=== PATIENT | male | born 1975 | race Caucasian/White ===

== ENCOUNTER 2018-11-26 11:37 | Observation (INO) | payer OTHER ==
[2018-11-26 12:41] LABS: Appearance,Urine Clear (Clear); Bilirubin,Urine Negative (Negative); Blood,Urine Negative (Negative); Color,Urine Colorless; Glucose,Urine (UA) Negative (Negative); Ketones,Urine Negative (Negative); Leukocyte Esterase,Urine Negative (Negative); Nitrite,Urine Negative (Negative); PH, Urine 7.5 (5.0-8.0); Protein,Urine Negative (Negative); Specific Gravity,Urine 1.004 (1.001-1.035); Urobilinogen,Urine <2.0 mg/dL (<2.0)
[2018-11-26 12:49] LABS: ALT 21 U/L (21-72); AST 21 U/L (17-59); African American GFR (CKD) >90 (>60 ml/min/1.73 sqM); Albumin 3.9 g/dL (3.5-5.0); Alkaline Phosphatase 43 U/L (38-126); Anion Gap 6 mmol/L; Blood Urea Nitrogen 7 mg/dL (9-20); Calcium 9.5 mg/dL (8.4-10.2); Carbon Dioxide 30 mmol/L (22-30); Chloride 107 mmol/L (98-107); Glucose 93 mg/dL (74-99); Potassium 4.6 mmol/L (3.5-5.1); Sodium 143 mmol/L (137-145); Total Bilirubin 0.4 mg/dL (0.2-1.3); Total Protein 6.8 g/dL (6.3-8.2)
--- NOTE | 2018-11-26 12:49 | ED ---
General Adult HPI - General Chief complaint: Extremity Injury, Lower Stated complaint: Lower Extremity Pain Time Seen by Provider: 11/26/18 11:42 Source: patient, EMS Mode of arrival: EMS Limitations: no limitations - History of Present Illness Initial comments: The patient is a 43-year-old male who is a transfer from [place] for lower extremity edema. The patient does have a history of TIA, 2 months ago and alcohol abuse. Patient reports that he entered rehab 32 days ago and is currently residing at [place]. States that as of 5 days ago he began having bilateral lower extremity swelling. No history of previous in the past. Denies a history of congestive heart failure, kidney or liver failure. No history of lower extremity cellulitis. No chronic venous insufficiency. Denies a history of DVTs or PEs. No family history of blood clotting disorders. Denies any recent travel or prolonged immobility. No recent surgeries. States he's had progressive pain and swelling in his legs. Now extends up to his mid thigh. Reports that it is extremely painful. Extremity is warm and hot. He denies any fevers or chills. No chest pain or shortness of breath. Denies abdominal pain. No nausea or vomiting. Denies any new medication changes. States it has been difficult a really due to the pain is lower tremors. There are no other alleviating, precipitating or modifying factors - Related Data Home Medications Medication Instructions Recorded Confirmed Acetaminophen [Tylenol 8 Hour] 650 mg PO Q4H PRN 11/26/18 11/26/18 Chlorpheniramine Maleate 4 mg PO DAILY PRN 11/26/18 11/26/18 [Chlor-Trimeton] Divalproex Sodium [Depakote] 500 mg PO BID 11/26/18 11/26/18 Gabapentin 600 mg PO BID 11/26/18 11/26/18 Ibuprofen [Motrin] 600 mg PO Q6H PRN 11/26/18 11/26/18 Multivitamins, Thera [Multivitamin 1 tab PO DAILY 11/26/18 11/26/18 (formulary)] OLANZapine [ZyPREXA] 5 mg PO DAILY 11/26/18 11/26/18 Thiamine [Vitamin B-1] 100 mg PO DAILY 11/26/18 11/26/18 busPIRone HCL 15 mg PO TID 11/26/18 11/26/18 traZODone HCL [Desyrel] 50 - 150 mg PO HS 11/26/18 11/26/18 Previous Rx's Medication Instructions Recorded Furosemide [Lasix] 20 mg PO DAILY 14 Days #14 tab 11/30/18 Levofloxacin [Levaquin] 500 mg PO DAILY 3 Days #3 tab 11/30/18 Nicotine 14Mg/24Hr Patch [Habitrol] 1 patch TRANSDERM DAILY 30 Days 11/30/18 #30 patch Potassium Chloride ER [K-Dur 10] 10 meq PO DAILY 14 Days #14 tab 11/30/18 Allergies Allergy/AdvReac Type Severity Reaction Status Date / Time aspirin AdvReac Unknown Verified 11/26/18 11:42 Penicillins AdvReac Unknown Verified 11/26/18 11:42 Review of Systems ROS Statement: Those systems with pertinent positive or pertinent negative responses have been documented in the HPI. ROS Other: All systems not noted in ROS Statement are negative. Past Medical History Past Medical History: CVA/TIA, Hyperlipidemia, Hypertension, Myocardial Infarction ([place]) History of Any Multi-Drug Resistant Organisms: None Reported Past Surgical History: Orthopedic Surgery Past Psychological History: Anxiety, Bipolar, Depression Smoking Status: Current every day smoker Past Alcohol Use History: Abuse Past Drug Use History: None Reported - Past Family History Mother Family Medical History: COPD Father History Unknown: Yes Family Medical History: Unable to Obtain General Exam Limitations: no limitations General appearance: alert, in no apparent distress Head exam: Present: atraumatic, normocephalic, normal inspection Eye exam: Present: normal appearance, PERRL, EOMI. Absent: scleral icterus, co njunctival injection, periorbital swelling ENT exam: Present: normal exam, mucous membranes moist Neck exam: Present: normal inspection. Absent: tenderness, meningismus, lymphadenopathy Respiratory exam: Present: normal lung sounds bilaterally. Absent: respiratory distress, wheezes, rales, rhonchi, stridor Cardiovascular Exam: Present: regular rate, normal rhythm, normal heart sounds. Absent: systolic murmur, diastolic murmur, rubs, gallop, clicks GI/Abdominal exam: Present: soft, normal bowel sounds. Absent: distended, tenderness, guarding, rebound, rigid Extremities exam: Present: normal inspection, full ROM, normal capillary refill, pedal edema (3+ pitting edema. 2+ DP and PT pulses. Comartments are soft. No open wounds. Legs are warm with slight erythema. ). Absent: tenderness, joint swelling, calf tenderness Back exam: Present: normal inspection Neurological exam: Present: alert, oriented X3, CN II-XII intact Psychiatric exam: Present: normal affect, normal mood Skin exam: Present: warm, dry, intact, normal color. Absent: rash Course Vital Signs 11/26/18 11/26/18 11/26/18 11:38 11:43 12:00 Temperature 98.2 F Pulse Rate 71 Respiratory 16 Rate Blood Pressure 125/89 125/89 125/89 O2 Sat by Pulse 98 98 99 Oximetry 11/26/18 11/26/18 11/26/18 12:30 13:00 13:30 Temperature Pulse Rate Respiratory Rate Blood Pressure 116/80 127/80 125/78 O2 Sat by Pulse Oximetry 11/26/18 11/26/18 11/26/18 14:00 16:46 17:30 Temperature Pulse Rate 68 98 Respiratory 16 17 17 Rate Blood Pressure 135/84 130/83 130/83 O2 Sat by Pulse 99 99 Oximetry 11/26/18 11/26/18 11/26/18 18:00 18:30 19:00 Temperature Pulse Rate 82 85 Respiratory 17 18 16 Rate Blood Pressure 130/83 130/83 123/82 O2 Sat by Pulse 99 97 Oximetry 11/26/18 19:25 Temperature 98 F Pulse Rate 84 Respiratory 18 Rate Blood Pressure 125/74 O2 Sat by Pulse 97 Oximetry EKG Findings - EKG Comments: EKG Findings:: EKG demonstrates a sinus rhythm with a ventricular rate of 67. RI interval 118. QRS 84. QTC of 426. There are no acute ST segment elevations or depressions concerning for ischemic changes Medical Decision Making - Medical Decision Making Upon arrival the patient is placed in room 11. He was hooked up to continuous pulse ox and cardiac monitoring. Laboratory studies were conducted. The patient was sent for an ultrasound of his bilateral lower extremities. I also performed a chest x-ray. Upon return of the results I did discuss them with the patient. He does not demonstrate any signs of heart failure. No signs of liver kidney issues. Ultrasound is negative for blood clots. The patient does have significant pain and swelling did recommend initiating antibiotics for cellulitis even of the patient's laboratory markers are negative. Blood cultures were obtained. I did initiate him on clindamycin as he is ALLERGIC to penicillins. I did call discuss case with Dr. Hardin. Dr. hardin did recommend medical the patient's heart as well as a CT of the patient's abdomen and pelvis. Abdomen and pelvis CT is performed with contrast which demonstrates no acute findings. I will hold off on providing any Lasix to the patient. The patient did agree to treatment plan. Bridging orders were placed and the patient was transported to floor in stable condition - Lab Data Result diagrams: 11/30/18 06:45 11/30/18 06:45 Lab Results 11/26/18 11/26/18 11/26/18 Range/Units 12:26 12:26 12:26 WBC 6.7 (3.8-10.6) k/uL RBC 3.87 L (4.30-5.90) m/uL Hgb 12.2 L (13.0-17.5) gm/dL Hct 37.3 L (39.0-53.0) % MCV 96.3 (80.0-100.0) fL MCH 31.6 (25.0-35.0) pg MCHC 32.8 (31.0-37.0) g/dL RDW 14.6 (11.5-15.5) % Plt Count 354 (150-450) k/uL Neutrophils % 52 % Lymphocytes % 32 % Monocytes % 9 % Eosinophils % 3 % Basophils % 1 % Neutrophils # 3.5 (1.3-7.7) k/uL Lymphocytes # 2.1 (1.0-4.8) k/uL Monocytes # 0.6 (0-1.0) k/uL Eosinophils # 0.2 (0-0.7) k/uL Basophils # 0.1 (0-0.2) k/uL ESR 8 (0-15) mm/hr PT 10.1 (9.0-12.0) sec INR 0.9 (<1.2) APTT 27.2 (22.0-30.0) sec D-Dimer 0.45 (<0.60) mg/L FEU Sodium 143 (137-145) mmol/L Potassium 4.6 (3.5-5.1) mmol/L Chloride 107 (98-107) mmol/L Carbon Dioxide 30 (22-30) mmol/L Anion Gap 6 mmol/L BUN 7 L (9-20) mg/dL Creatinine 0.64 L (0.66-1.25) mg/dL Est GFR (CKD-EPI)AfAm >90 (>60 ml/min/1.73 sqM) Est GFR (CKD-EPI)NonAf >90 (>60 ml/min/1.73 sqM) Glucose 93 (74-99) mg/dL POC Glucose (mg/dL) (75-99) mg/dL POC Glu Industrial Automation Engineer ID Calcium 9.5 (8.4-10.2) mg/dL Magnesium 2.0 (1.6-2.3) mg/dL Total Bilirubin 0.4 (0.2-1.3) mg/dL AST 21 (17-59) U/L ALT 21 (21-72) U/L Alkaline Phosphatase 43 (38-126) U/L Troponin I (0.000-0.034) ng/mL C-Reactive Protein <5.0 (<10.0) mg/L NT-Pro-B Natriuret Pep pg/mL Total Protein 6.8 (6.3-8.2) g/dL Albumin 3.9 (3.5-5.0) g/dL TSH 1.990 (0.465-4.680) mIU/L Urine Color Urine Appearance (Clear) Urine pH (5.0-8.0) Ur Specific [place] (1.001-1.035) Urine Protein (Negative) Urine Glucose (UA) (Negative) Urine Ketones (Negative) Urine Blood (Negative) Urine Nitrite (Negative) Urine Bilirubin (Negative) Urine Urobilinogen (<2.0) mg/dL Ur Leukocyte Esterase (Negative) Valproic Acid ug/mL 11/26/18 11/26/18 11/26/18 Range/Units 12:26 12:26 12:26 WBC (3.8-10.6) k/uL RBC (4.30-5.90) m/uL Hgb (13.0-17.5) gm/dL Hct (39.0-53.0) % MCV (80.0-100.0) fL MCH (25.0-35.0) pg MCHC (31.0-37.0) g/dL RDW (11.5-15.5) % Plt Count (150-450) k/uL Neutrophils % % Lymphocytes % % Monocytes % % Eosinophils % % Basophils % % Neutrophils # (1.3-7.7) k/uL Lymphocytes # (1.0-4.8) k/uL Monocytes # (0-1.0) k/uL Eosinophils # (0-0.7) k/uL Basophils # (0-0.2) k/uL ESR (0-15) mm/hr PT (9.0-12.0) sec INR (<1.2) APTT (22.0-30.0) sec D-Dimer (<0.60) mg/L FEU Sodium (137-145) mmol/L Potassium (3.5-5.1) mmol/L Chloride (98-107) mmol/L Carbon Dioxide (22-30) mmol/L Anion Gap mmol/L BUN (9-20) mg/dL Creatinine (0.66-1.25) mg/dL Est GFR (CKD-EPI)AfAm (>60 ml/min/1.73 sqM) Est GFR (CKD-EPI)NonAf (>60 ml/min/1.73 sqM) Glucose (74-99) mg/dL POC Glucose (mg/dL) (75-99) mg/dL POC Glu Industrial Automation Engineer ID Calcium (8.4-10.2) mg/dL Magnesium (1.6-2.3) mg/dL Total Bilirubin (0.2-1.3) mg/dL AST (17-59) U/L ALT (21-72) U/L Alkaline Phosphatase (38-126) U/L Troponin I <0.012 (0.000-0.034) ng/mL C-Reactive Protein (<10.0) mg/L NT-Pro-B Natriuret Pep 97 pg/mL Total Protein (6.3-8.2) g/dL Albumin (3.5-5.0) g/dL TSH (0.465-4.680) mIU/L Urine Color Colorless Urine Appearance Clear (Clear) Urine pH 7.5 (5.0-8.0) Ur Specific [place] 1.004 (1.001-1.035) Urine Protein Negative (Negative) Urine Glucose (UA) Negative (Negative) Urine Ketones Negative (Negative) Urine Blood Negative (Negative) Urine Nitrite Negative (Negative) Urine Bilirubin Negative (Negative) Urine Urobilinogen <2.0 (<2.0) mg/dL Ur Leukocyte Esterase Negative (Negative) Valproic Acid ug/mL 11/26/18 11/26/18 11/27/18 Range/Units 12:28 19:33 00:51 WBC (3.8-10.6) k/uL RBC (4.30-5.90) m/uL Hgb (13.0-17.5) gm/dL Hct (39.0-53.0) % MCV (80.0-100.0) fL MCH (25.0-35.0) pg MCHC (31.0-37.0) g/dL RDW (11.5-15.5) % Plt Count (150-450) k/uL Neutrophils % % Lymphocytes % % Monocytes % % Eosinophils % % Basophils % % Neutrophils # (1.3-7.7) k/uL Lymphocytes # (1.0-4.8) k/uL Monocytes # (0-1.0) k/uL Eosinophils # (0-0.7) k/uL Basophils # (0-0.2) k/uL ESR (0-15) mm/hr PT (9.0-12.0) sec INR (<1.2) APTT (22.0-30.0) sec D-Dimer (<0.60) mg/L FEU Sodium (137-145) mmol/L Potassium (3.5-5.1) mmol/L Chloride (98-107) mmol/L Carbon Dioxide (22-30) mmol/L Anion Gap mmol/L BUN (9-20) mg/dL Creatinine (0.66-1.25) mg/dL Est GFR (CKD-EPI)AfAm (>60 ml/min/1.73 sqM) Est GFR (CKD-EPI)NonAf (>60 ml/min/1.73 sqM) Glucose (74-99) mg/dL POC Glucose (mg/dL) (75-99) mg/dL POC Glu Industrial Automation Engineer ID Calcium (8.4-10.2) mg/dL Magnesium (1.6-2.3) mg/dL Total Bilirubin (0.2-1.3) mg/dL AST (17-59) U/L ALT (21-72) U/L Alkaline Phosphatase (38-126) U/L Troponin I <0.012 0.013 (0.000-0.034) ng/mL C-Reactive Protein (<10.0) mg/L NT-Pro-B Natriuret Pep pg/mL Total Protein (6.3-8.2) g/dL Albumin (3.5-5.0) g/dL TSH (0.465-4.680) mIU/L Urine Color Urine Appearance (Clear) Urine pH (5.0-8.0) Ur Specific [place] (1.001-1.035) Urine Protein (Negative) Urine Glucose (UA) (Negative) Urine Ketones (Negative) Urine Blood (Negative) Urine Nitrite (Negative) Urine Bilirubin (Negative) Urine Urobilinogen (<2.0) mg/dL Ur Leukocyte Esterase (Negative) Valproic Acid 59.9 ug/mL 11/27/18 11/27/18 11/27/18 Range/Units 16:57 16:57 21:14 WBC 6.5 (3.8-10.6) k/uL RBC 4.04 L (4.30-5.90) m/uL Hgb 13.1 (13.0-17.5) gm/dL Hct 38.8 L (39.0-53.0) % MCV 96.1 (80.0-100.0) fL MCH 32.5 (25.0-35.0) pg MCHC 33.8 (31.0-37.0) g/dL RDW 14.7 (11.5-15.5) % Plt Count 387 (150-450) k/uL Neutrophils % 40 % Lymphocytes % 41 % Monocytes % 11 % Eosinophils % 3 % Basophils % 2 % Neutrophils # 2.6 (1.3-7.7) k/uL Lymphocytes # 2.7 (1.0-4.8) k/uL Monocytes # 0.7 (0-1.0) k/uL Eosinophils # 0.2 (0-0.7) k/uL Basophils # 0.1 (0-0.2) k/uL ESR (0-15) mm/hr PT (9.0-12.0) sec INR (<1.2) APTT (22.0-30.0) sec D-Dimer (<0.60) mg/L FEU Sodium 139 (137-145) mmol/L Potassium 4.6 (3.5-5.1) mmol/L Chloride 103 (98-107) mmol/L Carbon Dioxide 28 (22-30) mmol/L Anion Gap 8 mmol/L BUN 11 (9-20) mg/dL Creatinine 0.76 (0.66-1.25) mg/dL Est GFR (CKD-EPI)AfAm >90 (>60 ml/min/1.73 sqM) Est GFR (CKD-EPI)NonAf >90 (>60 ml/min/1.73 sqM) Glucose 93 (74-99) mg/dL POC Glucose (mg/dL) 96 (75-99) mg/dL POC Glu Industrial Automation Engineer ID Armando Trevino Calcium 9.8 (8.4-10.2) mg/dL Magnesium (1.6-2.3) mg/dL Total Bilirubin (0.2-1.3) mg/dL AST (17-59) U/L ALT (21-72) U/L Alkaline Phosphatase (38-126) U/L Troponin I (0.000-0.034) ng/mL C-Reactive Protein (<10.0) mg/L NT-Pro-B Natriuret Pep pg/mL Total Protein (6.3-8.2) g/dL Albumin (3.5-5.0) g/dL TSH (0.465-4.680) mIU/L Urine Color Urine Appearance (Clear) Urine pH (5.0-8.0) Ur Specific [place] (1.001-1.035) Urine Protein (Negative) Urine Glucose (UA) (Negative) Urine Ketones (Negative) Urine Blood (Negative) Urine Nitrite (Negative) Urine Bilirubin (Negative) Urine Urobilinogen (<2.0) mg/dL Ur Leukocyte Esterase (Negative) Valproic Acid ug/mL 11/28/18 11/28/18 11/29/18 Range/Units 07:25 07:25 07:33 WBC 6.3 5.8 (3.8-10.6) k/uL RBC 4.12 L 4.33 (4.30-5.90) m/uL Hgb 13.4 13.5 (13.0-17.5) gm/dL Hct 39.6 41.1 (39.0-53.0) % MCV 96.1 94.9 (80.0-100.0) fL MCH 32.4 31.2 (25.0-35.0) pg MCHC 33.7 32.8 (31.0-37.0) g/dL RDW 14.9 14.8 (11.5-15.5) % Plt Count 362 349 (150-450) k/uL Neutrophils % 52 50 % Lymphocytes % 33 34 % Monocytes % 7 9 % Eosinophils % 3 4 % Basophils % 1 1 % Neutrophils # 3.3 2.9 (1.3-7.7) k/uL Lymphocytes # 2.1 2.0 (1.0-4.8) k/uL Monocytes # 0.5 0.5 (0-1.0) k/uL Eosinophils # 0.2 0.2 (0-0.7) k/uL Basophils # 0.1 0.1 (0-0.2) k/uL ESR (0-15) mm/hr PT (9.0-12.0) sec INR (<1.2) APTT (22.0-30.0) sec D-Dimer (<0.60) mg/L FEU Sodium 139 (137-145) mmol/L Potassium 4.5 (3.5-5.1) mmol/L Chloride 99 (98-107) mmol/L Carbon Dioxide 27 (22-30) mmol/L Anion Gap 13 mmol/L BUN 16 (9-20) mg/dL Creatinine 0.77 (0.66-1.25) mg/dL Est GFR (CKD-EPI)AfAm >90 (>60 ml/min/1.73 sqM) Est GFR (CKD-EPI)NonAf >90 (>60 ml/min/1.73 sqM) Glucose 131 H (74-99) mg/dL POC Glucose (mg/dL) (75-99) mg/dL POC Glu Industrial Automation Engineer ID Calcium 9.6 (8.4-10.2) mg/dL Magnesium (1.6-2.3) mg/dL Total Bilirubin (0.2-1.3) mg/dL AST (17-59) U/L ALT (21-72) U/L Alkaline Phosphatase (38-126) U/L Troponin I (0.000-0.034) ng/mL C-Reactive Protein (<10.0) mg/L NT-Pro-B Natriuret Pep pg/mL Total Protein (6.3-8.2) g/dL Albumin (3.5-5.0) g/dL TSH (0.465-4.680) mIU/L Urine Color Urine Appearance (Clear) Urine pH (5.0-8.0) Ur Specific [place] (1.001-1.035) Urine Protein (Negative) Urine Glucose (UA) (Negative) Urine Ketones (Negative) Urine Blood (Negative) Urine Nitrite (Negative) Urine Bilirubin (Negative) Urine Urobilinogen (<2.0) mg/dL Ur Leukocyte Esterase (Negative) Valproic Acid ug/mL 11/29/18 Range/Units 07:33 WBC (3.8-10.6) k/uL RBC (4.30-5.90) m/uL Hgb (13.0-17.5) gm/dL Hct (39.0-53.0) % MCV (80.0-100.0) fL MCH (25.0-35.0) pg MCHC (31.0-37.0) g/dL RDW (11.5-15.5) % Plt Count (150-450) k/uL Neutrophils % % Lymphocytes % % Monocytes % % Eosinophils % % Basophils % % Neutrophils # (1.3-7.7) k/uL Lymphocytes # (1.0-4.8) k/uL Monocytes # (0-1.0) k/uL Eosinophils # (0-0.7) k/uL Basophils # (0-0.2) k/uL ESR (0-15) mm/hr PT (9.0-12.0) sec INR (<1.2) APTT (22.0-30.0) sec D-Dimer (<0.60) mg/L FEU Sodium 137 (137-145) mmol/L Potassium 4.0 (3.5-5.1) mmol/L Chloride 98 (98-107) mmol/L Carbon Dioxide 29 (22-30) mmol/L Anion Gap 10 mmol/L BUN 20 (9-20) mg/dL Creatinine 0.84 (0.66-1.25) mg/dL Est GFR (CKD-EPI)AfAm >90 (>60 ml/min/1.73 sqM) Est GFR (CKD-EPI)NonAf >90 (>60 ml/min/1.73 sqM) Glucose 126 H (74-99) mg/dL POC Glucose (mg/dL) (75-99) mg/dL POC Glu Industrial Automation Engineer ID Calcium 9.5 (8.4-10.2) mg/dL Magnesium (1.6-2.3) mg/dL Total Bilirubin (0.2-1.3) mg/dL AST (17-59) U/L ALT (21-72) U/L Alkaline Phosphatase (38-126) U/L Troponin I (0.000-0.034) ng/mL C-Reactive Protein (<10.0) mg/L NT-Pro-B Natriuret Pep pg/mL Total Protein (6.3-8.2) g/dL Albumin (3.5-5.0) g/dL TSH (0.465-4.680) mIU/L Urine Color Urine Appearance (Clear) Urine pH (5.0-8.0) Ur Specific [place] (1.001-1.035) Urine Protein (Negative) Urine Glucose (UA) (Negative) Urine Ketones (Negative) Urine Blood (Negative) Urine Nitrite (Negative) Urine Bilirubin (Negative) Urine Urobilinogen (<2.0) mg/dL Ur Leukocyte Esterase (Negative) Valproic Acid ug/mL Disposition Clinical Impression: Lower extremity edema Disposition: ADMITTED IP TO THIS [facility] Condition: Stable Is patient prescribed a controlled substance at d/c from ED?: No Decision to Admit Reason: Admit from EC Decision Date: 11/26/18 Decision Time: 15:46
--- NOTE | 2018-11-26 12:52 | XR ---
EXAMINATION TYPE: XR chest 2V DATE OF EXAM: 11/26/2018 COMPARISON: NONE TECHNIQUE: PA and lateral views submitted. HISTORY: Difficulty breathing FINDINGS: The lungs are clear and there is no pneumothorax, pleural effusion, or focal pneumonia. Hyperinflat ion noted. Biapical pleural thickening. Degenerative change of the spine. No overt failure. IMPRESSION: 1. No acute process. Correlate for COPD.
[2018-11-26 12:56] LABS: Basophils # (A) 0.1 k/uL (0-0.2); Basophils % (A) 1 %; Eosinophils # (A) 0.2 k/uL (0-0.7); Eosinophils % (A) 3 %; HCT 37.3 % (39.0-53.0); HGB 12.2 gm/dL (13.0-17.5); Lymphocytes # (A) 2.1 k/uL (1.0-4.8); Lymphocytes % (A) 32 %; MCH 31.6 pg (25.0-35.0); MCHC 32.8 g/dL (31.0-37.0); MCV 96.3 fL (80.0-100.0); Mean Platelet Volume 6.6; Monocytes # (A) 0.6 k/uL (0-1.0); Monocytes % (A) 9 %; Neutrophils # (A) 3.5 k/uL (1.3-7.7); Neutrophils % (A) 52 %; Platelet Count 354 k/uL (150-450); RBC 3.87 m/uL (4.30-5.90); RDW 14.6 % (11.5-15.5); WBC 6.7 k/uL (3.8-10.6)
[2018-11-26 13:00] LABS: D-Dimer 0.45 mg/L FEU (<0.60); INR 0.9 (<1.2); Partial Thromboplastin Time 27.2 sec (22.0-30.0); Prothrombin Time 10.1 sec (9.0-12.0)
[2018-11-26 13:04] LABS: C Reactive Protein <5.0 mg/L (<10.0)
--- NOTE | 2018-11-26 13:47 | US ---
EXAMINATION TYPE: US venous doppler duplex LE DATE OF EXAM: 11/26/2018 1:33 PM COMPARISON: NONE CLINICAL HISTORY: Pain. Bilateral leg pain and swelling x 5 to 6 days SIDE PERFORMED: Bilateral TECHNIQUE: The lower extremity deep venous system is examined utilizing real time linear array sonog emanuel with graded compression, doppler sonography and color-flow sonography. VESSELS IMAGED: External Iliac Vein (EIV) Common Femoral Vein Deep Femoral Vein Greater Saphenous Vein * Femoral Vein Popliteal Vein Small Saphenous Vein * Proximal Calf Veins (* superficial vessels) Grayscale, color doppler, spectral doppler imaging performed of the deep veins of the lower extremiti es. There is normal flow, compressibility, vascular waveforms. Right Leg: Appears negative for DVT Left Leg: Appears negative for DVT IMPRESSION: No sonographic evidence of deep venous thrombosis within either bilateral lower extremit y.
[2018-11-26 13:53] LABS: Erythrocyte Sedimentation Rate 8 mm/hr (0-15)
[2018-11-26] MEDS ORDERED: CLINDAMYCIN 600 MG in DEXTROSE 5% IN WATER 50 ML IVPB STA ×2 (14:21)
--- NOTE | 2018-11-26 15:45 | CT ---
EXAMINATION TYPE: CT abdomen pelvis w con DATE OF EXAM: 11/26/2018 COMPARISON: None HISTORY: Bilateral leg swelling CT DLP: 767 mGycm CONTRAST: CT scan of the abdomen and pelvis is performed without Oral Contrast and with IV Contrast, patient in jected with 100 mL of Isovue 300. FINDINGS: LUNG BASES-: No visible nodule. No infiltrate. LIVER/GB: No calcified gallstones. No space occupying hepatic lesion. Biliary tree is of normal ca liber. PANCREAS: No inflammation. No distinct mass. SPLEEN: No splenic enlargement. No lesion seen. ADRENALS: No nodule. No thickening. KIDNEYS/BLADDER: No hydronephrosis. No nephrolithiasis. No distinct renal mass. Urinary bladder g rossly unremarkable. BOWEL: Normal appendix. Normal bowel caliber. No inflammation. GENITAL ORGANS: No gross abnormality. LYMPH NODES: No greater than 1cm abdominal or pelvic lymph nodes are appreciated. AORTA: No significant abnormality. OSSEOUS STRUCTURES: No significant abnormality is seen. OTHER: No significant additional abnormality is seen. IMPRESSION: 1. No distinct abnormality to account for the patient's symptoms.
[2018-11-26] MEDS ORDERED: NALOXONE 0.4 MG/ML 1 ML VIAL IV PRN (15:47)
[2018-11-26] MEDS ORDERED: IBUPROFEN 600 MG TAB PO PRN (15:52)
[2018-11-26] MEDS ORDERED: ACETAMINOPHEN TAB 325 MG TAB PO PRN (15:52)
[2018-11-26] MEDS: busPIRone HCl 5 MG TAB PO SCH ×2 (19:01→22:36)
[2018-11-26] MEDS ORDERED: ALPRAZolam 0.25 MG TAB PO PRN (22:00)
[2018-11-26] MEDS ORDERED: TEMAZEPAM 15 MG CAP PO PRN (22:00)
[2018-11-26] MEDS ORDERED: HYDROcodone/APAP 5-325MG 1 EACH TAB PO PRN (22:00)
[2018-11-26] MEDS ORDERED: diphenhydrAMINE 25 MG CAP PO PRN (22:01)
[2018-11-26] MEDS: HEPARIN SODIUM,PORCINE 5,000 UNIT/ML 1 ML VIAL SQ SCH (22:36)
[2018-11-26] MEDS: traZODone HCL 50 MG TAB PO SCH ×2 (22:36→22:40)
[2018-11-27] MEDS ORDERED: CLINDAMYCIN 600 MG in DEXTROSE 5% IN WATER 50 ML IVPB SCH ×2
--- NOTE | 2018-11-27 01:11 | HP ---
HISTORY AND PHYSICAL DATE OF SERVICE: 11/26/2018 CHIEF COMPLAINT: Bilateral leg swelling. HISTORY OF PRESENT ILLNESS: This 43-year-old gentleman with past medical history of CVA, history of myocardial infarction, hypertension and hyperlipidemia, anxiety, bipolar, depression being followed by a primary physician elsewhere, was in [employer] for alcohol issues. The patient is noted to have bilateral leg swelling and some erythema and the patient was taken to [facility] and admitted to the hospital for further evaluation and treatment. The previous records are not available at this time. There is no history of fever, rigors or chills. No history of headache, loss of consciousness or seizures at this time. Initial labs indicated WBC 6.2, hemoglobin 12.2, creatinine 0.64. Troponins are negative. BNP is only 97. PAST MEDICAL HISTORY: History of hypertension, hyperlipidemia, history of CVA, TIA, history of myocardial infarction, anxiety, bipolar depression, nicotine dependence, alcohol abuse. MEDICATIONS ARE: 1. Trazodone 50-150 mg p.o. q.h.s. 2. Buspirone 15 mg p.o. t.i.d. 3. Vitamin B1 100 mg. 4. Zyprexa 5 mg. 5. Multivitamins one p.o. daily. 6. Motrin 600 mg q.6h p.r.n. 7. Gabapentin 600 mg p.o. b.i.d. 8. Depakote 500 mg p.o. b.i.d. 9. Chlorpheniramine maleate that is Chlor-Trimeton 4 mg daily p.r.n. 10.Tylenol 650 mg q.4 hours. ALLERGIES: ASPIRIN and PENICILLIN. FAMILY HISTORY: No history of heart disease or strokes in the family. SOCIAL HISTORY: Mentioned earlier. Smoking and alcohol abuse. REVIEW OF SYSTEMS: ENT: No diminished hearing. No diminished vision. CARDIOVASCULAR as mentioned earlier. RESPIRATORY: As mentioned earlier. GI no nausea or vomiting. no dysuria. NERVOUS SYSTEM: No numbness, weakness, otherwise mentioned earlier. ALLERGY/IMMUNOLOGY: No asthma or hayfever. MUSCULOSKELETAL: As mentioned earlier. HEMATOLOGY/ONCOLOGY: No history no anemia. ENDOCRINE: No history of diabetes or hypothyroid. CONSTITUTIONAL: As mentioned earlier. PSYCHIATRY: As mentioned. PHYSICAL EXAMINATION: GENERAL: Alert and oriented x3. VITAL SIGNS: The pulse is 84. Blood pressure 120/70, respiration 18, temperature 98 degrees, pulse ox 97% on room air. HEENT: Conjunctivae normal. Oral mucosa moist. NECK is no jugular venous distention. No carotid bruit. No lymph node enlargement. CARDIOVASCULAR SYSTEM: S1, S2 muffled. No S3, no S4. RESPIRATIONS: Breath sounds diminished in the bases. No rhonchi. No crackles. ABDOMEN: Soft, nontender. No mass palpable. LEGS: Bilateral leg edema. NERVOUS SYSTEM: Higher functions as mentioned earlier. Moves all 4 limbs. No focal motor or sensory deficits. Lymphatics: No lymph nodes palpable in the neck, axillae or groin. SKIN: No ulcer, rash or bleeding. JOINTS: No active deforming arthropathy. LABORATORY DATA: WBC 6.7, hemoglobin 12.2, creatinine 6.6. Other labs are noted. ASSESSMENT: 1. Bilateral leg edema for evaluation with possible congestive heart failure, acute exacerbation. 2. History of cerebrovascular accident. 3. History of myocardial infarction. 4. History of hypertension. 5. History of hyperlipidemia. 6. History of anxiety, bipolar depression. 7. History of nicotine dependence. 8. History of EtOH. 9. History of degenerative joint disease. 10.FULL CODE. RECOMMENDATIONS AND DISCUSSION: This 43-year-old gentleman who presented with multiple medical issues, at this time, I recommend to continue current medications, management and the symptomatic treatment. Previous chart records are not available. However, I would recommend intravenous diuretics a 2D echo with Doppler. Obtain old records from the previous hospice. Otherwise, cardiology consultation. See orders for details. Guarded prognosis. Further recommendations to follow. MMODL / IJN: [id number] /
[2018-11-27] MEDS: LEVOFLOXACIN 500MG-D5W PMX 500 MG in DEXTROSE/WATER 1 100ML.BAG IVPB SCH ×2 (02:05→22:21)
[2018-11-27] MEDS: GABAPENTIN 300 MG CAP PO SCH ×2 (07:46→22:20)
[2018-11-27] MEDS: THIAMINE 100 MG TAB PO SCH (07:46)
[2018-11-27] MEDS: MULTIVITAMINS, THERA 1 EACH TAB PO SCH (07:46)
[2018-11-27] MEDS: NICOTINE 14MG/24HR PATCH TRANSDERM SCH (07:46)
[2018-11-27] MEDS: PANTOPRAZOLE 40 MG TABLET PO SCH (07:46)
[2018-11-27] MEDS: busPIRone HCl 5 MG TAB PO SCH ×3 (07:47→22:21)
[2018-11-27] MEDS: HEPARIN SODIUM,PORCINE 5,000 UNIT/ML 1 ML VIAL SQ SCH ×2 (07:47→22:20)
[2018-11-27] MEDS: FUROSEMIDE 10 MG/ML 4 ML VIAL IV SCH ×2 (07:47→22:21)
[2018-11-27] MEDS: OLANZapine 5 MG TAB PO SCH (07:47)
[2018-11-27] MEDS: IPRATROPIUM 0.5 MG/2.5 ML NEBU INHALATION SCH ×2 (08:14→11:20)
[2018-11-27] MEDS ORDERED: DIVALPROEX 500 MG TABLET.DR PO SCH (09:00)
--- NOTE | 2018-11-27 11:32 | ECHOF ---
Referral Reason:lower extremity edema MEASUREMENTS -------- HEIGHT: 182.9 cm WEIGHT: 77.1 kg BP: RVIDd: 3.0 cm (< 3.3) IVSd: 0.8 cm (0.6 - 1.1) LVIDd: 4.9 cm (3.9 - 5.3) LVPWd: 1.2 cm (0.6 - 1.1) IVSs: 1.4 cm LVIDs: 3.6 cm LVPWs: 1.5 cm LA Diam: 3.4 cm (2.7 - 3.8) LAESV Index (A-L): 20.37 ml/m Ao Diam: 3.0 cm (2.0 - 3.7) AV Cusp: 1.9 cm (1.5 - 2.6) LA Diam: 3.0 cm (2.7 - 3.8) MV EXCURSION: 20.824 mm (> 18.000) MV EF SLOPE: 146 mm/s (70 - 150) EPSS: 0.5 cm MV E Francisco: 0.68 m/s MV DecT: 145 ms MV A Francisco: 0.56 m/s MV E/A Ratio: 1.22 RAP: 5.00 mmHg RVSP: 15.50 mmHg FINDINGS -------- Sinus rhythm. This was a technically good study. LV size, wall thickness and systolic function are normal, with an EF greater than 55%. The left zoë tricular size is normal. The right ventricle is normal in size. The left atrial size is normal. The right atrial size is normal. The aortic valve is trileaflet, and appears structurally normal. No aortic stenosis or regurgitation. Mild mitral annular calcification present. Mild mitral regurgitation is present. Mild tricuspid regurgitation present. There is no evidence of pulmonary hypertension. The right v entricular systolic pressure, as measured by Doppler, is 15.50mmHg. There is no pulmonic regurgitation present. The aortic root size is normal. There is no pericardial effusion. CONCLUSIONS -------- 1. Sinus rhythm. 2. This was a technically good study. 3. LV size, wall thickness and systolic function are normal, with an EF greater than 55%. 4. The left ventricular size is normal. 5. The right ventricle is normal in size. 6. The left atrial size is normal. 7. The right atrial size is normal. 8. The aortic valve is trileaflet, and appears structurally normal. No aortic stenosis or regurgitati on. 9. Mild mitral annular calcification present. 10. Mild mitral regurgitation is present. 11. Mild tricuspid regurgitation present. 12. There is no evidence of pulmonary hypertension. 13. The right ventricular systolic pressure, as measured by Doppler, is 15.50mmHg. 14. There is no pulmonic regurgitation present. 15. The aortic root size is normal. 16. There is no pericardial effusion. [employer] PIPE FINISHER: Ghislaine Gastelum RDCS
--- NOTE | 2018-11-27 13:20 | P.CRDCN ---
History of Present Illness History of present illness: This is a pleasant 43-year-old male past medical history significant for alcohol abuse currently undergoing rehabilitation at [facility], chronic nicotine dependence, history of stress-induced cardiomyopathy on 2 separate occasions per the patient, and TIA in the past. He follows with a ship pilot out of [facility]. We have been a see him in consultation secondary to shortness of breath and increased lower extremity edema. He is currently undergoing rehabilitation at [facility] for alcohol abuse. He states prior to going into rehabilitation he was quite active walking up to 15 miles per day. However over the previous 6 days he has noted mild exertion such as walking up one flight of stairs he has to stop and take a deep breath. He denies any associated chest discomfort, palpitations, nausea, vomiting or diaphoresis. He has been started on IV Lasix in the emergency department. He also has been started on IV antibiotics secondary to the possibility of cellulitis. EKG reveals sinus mechanism with no acute ST or T wave abnormalities noted. Chest x-ray reveals evidence of hyperinflation suggestive of underlying COPD. Laboratory data reviewed, cardiac enzymes negative 3, NT proBNP 97, WBC 6.7, hemoglobin 12.2, platelets 354, d-dimer 0.45, sodium 143, potassium 4.6 and creatinine 0.64. He currently takes no daily cardiac medications. At the time of my exam: CONSTITUTIONAL: Denies fever. Denies chills. EYES: Denies blurred vision. Denies vision changes. Denies eye pain. EARS, NOSE, MOUTH & THROAT: Denies headache. Denies sore throat. Denies ear pain. CARDIOVASCULAR: Denies chest pain. Complains of exertional shortness of breath. Denies orthopnea. Denies PND. Denies palpitations. RESPIRATORY: Denies cough. GASTROINTESTINAL: Denies abdominal pain. Denies diarrhea. Denies constipation. Denies nausea. Denies vomiting. MUSCULOSKELETAL: Denies myalgias. INTEGUMENTARY: Denies pruitis. Denies rash. NEUROLOGIC: Denies numbness. Denies tingling. Denies weakness. PSYCHIATRIC: Denies anxiety. Denies depression. ENDOCRINE: Denies fatigue. Denies weight change. Denies polydipsia. Denies polyurina. GENITOURINARY: Denies burning, hematuria or urgency with micturation. HEMATOLOGIC: Denies history of anemia. Denies bleeding. Blood pressure 113/76 heart rate 82 afebrile maintaining oxygen saturation on room air GENERAL: This is a 43-year-old male in no apparent distress at the time of my examination. HEENT: Head is atraumatic, normocephalic. Pupils are equal, round. Sclerae anicteric. Conjunctivae are clear. Mucous membranes of the mouth are moist. Neck is supple. There is no jugular venous distention. No carotid bruit is heard. LUNGS: Clear to auscultation no wheezes, rales or rhonchi. No chest wall tenderness is noted on palpation or with deep breathing. HEART: Regular rate and rhythm without murmurs, rubs or gallops. S1 and S2 heard. ABDOMEN: Soft, nontender. Bowel sounds are heard. No organomegaly noted. EXTREMITIES: Bilateral lower extremity 1+ pitting edema and no calf tenderness noted. VASCULAR: Radial and dorsalis pedis pulses palpated, no evidence of clubbing. NEUROLOGIC: Patient is awake, alert and oriented x3. ASSESSMENT Exertional shortness of breath with lower extremity edema. An acute coronary event has been ruled out. NTproBNP normal. History of stress-induced cardiomyopathy in the past. Exact details unavailable Alcohol abuse, currently undergoing rehabilitation at [facility] Chronic nicotine dependence PLAN An acute coronary event has been ruled out. Echocardiogram obtained and reviewed. Normal findings. Ongoing medical management of lower extremity cellulitis. Smoking cessation recommended. Thank you kindly for this consultation. Nurse Practitioner note has been reviewed, I agree with a documented findings and plan of care. Patient was seen and examined. Past Medical History Past Medical History: CVA/TIA, Hyperlipidemia, Hypertension, Myocardial Infarction ([place]) Additional Past Medical History / Comment(s): Head Trauma, broke collar bone Last Myocardial Infarction Date:: 2006 History of Any Multi-Drug Resistant Organisms: None Reported Past Surgical History: Orthopedic Surgery Past Anesthesia/Blood Transfusion Reactions: No Reported Reaction Past Psychological History: Anxiety, Bipolar, Depression Additional Psychological History / Comment(s): hx of suicide attempt (10/2018) Smoking Status: Current every day smoker Past Alcohol Use History: Abuse Past Drug Use History: None Reported - Past Family History Mother Family Medical History: COPD Father History Unknown: Yes Family Medical History: Unable to Obtain Medications and Allergies Home Medications Medication Instructions Recorded Confirmed Type Acetaminophen [Tylenol 8 Hour] 650 mg PO Q4H PRN 11/26/18 11/26/18 History Chlorpheniramine Maleate 4 mg PO DAILY PRN 11/26/18 11/26/18 History [Chlor-Trimeton] Divalproex Sodium [Depakote] 500 mg PO BID 11/26/18 11/26/18 History Gabapentin 600 mg PO BID 11/26/18 11/26/18 History Ibuprofen [Motrin] 600 mg PO Q6H PRN 11/26/18 11/26/18 History Multivitamins, Thera [Multivitamin 1 tab PO DAILY 11/26/18 11/26/18 History (formulary)] OLANZapine [ZyPREXA] 5 mg PO DAILY 11/26/18 11/26/18 History Thiamine [Vitamin B-1] 100 mg PO DAILY 11/26/18 11/26/18 History busPIRone HCL 15 mg PO TID 11/26/18 11/26/18 History traZODone HCL [Desyrel] 50 - 150 mg PO HS 11/26/18 11/26/18 History Allergies Allergy/AdvReac Type Severity Reaction Status Date / Time aspirin AdvReac Unknown Verified 11/26/18 11:42 Penicillins AdvReac Unknown Verified 11/26/18 11:42 Physical Exam Vitals: Vital Signs Temp Pulse Pulse Resp BP BP Pulse Ox 11/27/18 08:18 78 11/27/18 07:00 97.9 F 83 15 113/76 96 11/27/18 01:09 97.8 F 72 14 115/75 95 11/26/18 21:11 98.0 F 78 136/83 99 11/26/18 19:25 98 F 84 18 125/74 97 11/26/18 19:00 85 16 123/82 97 11/26/18 18:30 82 18 130/83 99 11/26/18 18:00 17 130/83 11/26/18 17:30 17 130/83 11/26/18 16:46 98 17 130/83 99 11/26/18 14:00 68 16 135/84 99 11/26/18 13:30 125/78 11/26/18 13:00 127/80 11/26/18 12:30 116/80 11/26/18 12:00 125/89 99 11/26/18 11:43 125/89 98 11/26/18 11:38 98.2 F 71 16 125/89 98 Intake and Output 11/26/18 11/27/18 11/27/18 22:59 06:59 14:59 Other: # Voids 1 1 Results 11/26/18 12:26 11/26/18 12:26 Cardiac Enzymes 11/26/18 11/26/18 11/26/18 Range/Units 12:26 12:26 19:33 AST 21 (17-59) U/L Troponin I <0.012 <0.012 (0.000-0.034) ng/mL 11/27/18 Range/Units 00:51 AST (17-59) U/L Troponin I 0.013 (0.000-0.034) ng/mL Coagulation 11/26/18 Range/Units 12:26 PT 10.1 (9.0-12.0) sec APTT 27.2 (22.0-30.0) sec CBC 11/26/18 Range/Units 12:26 WBC 6.7 (3.8-10.6) k/uL RBC 3.87 L (4.30-5.90) m/uL Hgb 12.2 L (13.0-17.5) gm/dL Hct 37.3 L (39.0-53.0) % Plt Count 354 (150-450) k/uL Comprehensive Metabolic Panel 11/26/18 Range/Units 12:26 Sodium 143 (137-145) mmol/L Potassium 4.6 (3.5-5.1) mmol/L Chloride 107 (98-107) mmol/L Carbon Dioxide 30 (22-30) mmol/L BUN 7 L (9-20) mg/dL Creatinine 0.64 L (0.66-1.25) mg/dL Glucose 93 (74-99) mg/dL Calcium 9.5 (8.4-10.2) mg/dL AST 21 (17-59) U/L ALT 21 (21-72) U/L Alkaline Phosphatase 43 (38-126) U/L Total Protein 6.8 (6.3-8.2) g/dL Albumin 3.9 (3.5-5.0) g/dL Current Medications Generic Name Dose Route Start Last Admin Trade Name Freq PRN Reason Stop Dose Admin Acetaminophen 650 mg 11/26/18 15:52 Tylenol Tab PO Q4H PRN Pain Hydrocodone Bitart/Acetaminophen 1 each 11/26/18 22:00 [place] 5-325 PO Q6HR PRN Pain Alprazolam 0.25 mg 11/26/18 22:00 Xanax PO TID PRN Anxiety Buspirone HCl 15 mg 11/26/18 16:15 11/27/18 07:47 Buspar PO 15 mg TID JUS Administration Diphenhydramine HCl 25 mg 11/26/18 22:01 Benadryl PO DAILY PRN Allergy Symptoms Divalproex Sodium 500 mg 11/27/18 09:00 11/27/18 07:47 Depakote PO 500 mg BID JUS Administration Furosemide 40 mg 11/27/18 09:00 11/27/18 07:47 Lasix IV 40 mg Q12HR JUS Administration Gabapentin 600 mg 11/27/18 09:00 11/27/18 07:46 Neurontin PO 600 mg BID JUS Administration Heparin Sodium (Porcine) 5,000 unit 11/26/18 22:00 11/27/18 07:47 Heparin SQ 5,000 unit Q12HR JUS Administration Levofloxacin 500 mg/ IV 100 mls @ 100 mls/hr 11/26/18 23:00 11/27/18 02:05 Solution IVPB 100 mls/hr Q24H JUS Administration Ibuprofen 600 mg 11/26/18 15:52 Motrin PO Q6H PRN Pain Ipratropium Rowena 0.5 mg 11/27/18 08:00 11/27/18 08:14 Atrovent Nebulized INHALATION 0.5 mg RT-QID JUS Administration Multivitamins 1 each 11/27/18 09:00 11/27/18 07:46 Theragran PO 1 each DAILY JUS Administration Naloxone HCl 0.2 mg 11/26/18 15:47 Narcan IV Q2M PRN Opioid Reversal Nicotine 1 patch 11/27/18 09:00 11/27/18 07:46 Habitrol 14mg/24hr Patch TRANSDERM 1 patch DAILY JUS Administration Olanzapine 5 mg 11/27/18 09:00 11/27/18 07:47 Zyprexa PO 5 mg DAILY JUS Administration Pantoprazole Sodium 40 mg 11/27/18 07:30 11/27/18 07:46 Protonix PO 40 mg [id number] JUS Administration Temazepam 15 mg 11/26/18 22:00 Restoril PO HS PRN Insomnia Thiamine HCl 100 mg 11/27/18 09:00 11/27/18 07:46 Vitamin B-1 PO 100 mg DAILY JUS Administration Trazodone HCl 50 mg 11/26/18 22:15 11/26/18 22:40 Desyrel PO Not Given HS JUS Intake and Output 11/26/18 11/27/18 11/27/18 22:59 06:59 14:59 Other: # Voids 1 1 11/26/18 12:26 11/26/18 12:26
[2018-11-27] MEDS: DIVALPROEX 500 MG TABLET.DR PO SCH (16:57)
[2018-11-27 17:40] LABS: Basophils # (A) 0.1 k/uL (0-0.2); Basophils % (A) 2 %; Eosinophils # (A) 0.2 k/uL (0-0.7); Eosinophils % (A) 3 %; HCT 38.8 % (39.0-53.0); HGB 13.1 gm/dL (13.0-17.5); Lymphocytes # (A) 2.7 k/uL (1.0-4.8); Lymphocytes % (A) 41 %; MCH 32.5 pg (25.0-35.0); MCHC 33.8 g/dL (31.0-37.0); MCV 96.1 fL (80.0-100.0); Monocytes # (A) 0.7 k/uL (0-1.0); Monocytes % (A) 11 %; Neutrophils # (A) 2.6 k/uL (1.3-7.7); Neutrophils % (A) 40 %; Platelet Count 387 k/uL (150-450); RBC 4.04 m/uL (4.30-5.90); RDW 14.7 % (11.5-15.5); WBC 6.5 k/uL (3.8-10.6)
[2018-11-27 17:48] LABS: African American GFR (CKD) >90 (>60 ml/min/1.73 sqM); Anion Gap 8 mmol/L; Blood Urea Nitrogen 11 mg/dL (9-20); Calcium 9.8 mg/dL (8.4-10.2); Carbon Dioxide 28 mmol/L (22-30); Chloride 103 mmol/L (98-107); Glucose 93 mg/dL (74-99); Potassium 4.6 mmol/L (3.5-5.1); Sodium 139 mmol/L (137-145)
--- NOTE | 2018-11-27 20:45 | PN ---
PROGRESS NOTE DATE OF SERVICE: 11/27/2018 This 43-year-old gentleman who was admitted with bilateral leg cellulitis is being closely monitored at this time. The patient also had significant cardiac issues. A 2D echo with Doppler done today showed ejection fraction more than 55%. A CT scan of the abdomen and pelvis also done yesterday showed no acute abnormality. Cardiology has seen the patient. The patient is on diuresis at this time. Patient is complaining of increased swelling after coming back from a walk. No chest pain. No palpitations. No fever. PHYSICAL EXAMINATION: Alert and oriented x3. Pulse is 90, blood pressure 130/74, respirations 16, temperature 98 degrees, pulse ox 96% on room air. HEENT: Conjunctivae normal. NECK: No jugular venous distention. CARDIOVASCULAR SYSTEM: S1, S2 muffled. RESPIRATORY SYSTEM: Breath sounds diminished at the bases. No rhonchi. No crackles. ABDOMEN: Soft. LEGS: Bilateral leg swelling and some redness and tenderness present. NERVOUS SYSTEM: No focal deficits. LABS: Labs at this time show WBC 6.5, hemoglobin 12.2. Troponins are negative. ASSESSMENT: 1. Acute bilateral leg cellulitis with swelling. 2. Congestive heart failure unlikely as well as acute coronary syndrome. 3. History of cerebrovascular accident. 4. History of myocardial infarction. 5. History of hypertension. 6. History of hyperlipidemia. 7. Anxiety, bipolar, depression. 8. History of nicotine dependence. 9. History of ethanol. 10.History of degenerative joint disease. 11.FULL CODE. RECOMMENDATIONS AND DISCUSSION: I recommend to continue current medications, continue with the monitoring, symptomatic treatment. Patient is on empiric diuretics at this time. We will monitor the renal functions closely, repeat labs. Guarded prognosis because of multiple complex medical issues. Further recommendations to follow. Closely follow with Cardiology. MMODL / IJN: [id number] /
[2018-11-27 21:15] LABS: Glucose,Whole Blood 96 mg/dL (75-99)
[2018-11-27] MEDS: traZODone HCL 50 MG TAB PO SCH (22:32)
[2018-11-28 08:10] LABS: Basophils # (A) 0.1 k/uL (0-0.2); Basophils % (A) 1 %; Eosinophils # (A) 0.2 k/uL (0-0.7); Eosinophils % (A) 3 %; HCT 39.6 % (39.0-53.0); HGB 13.4 gm/dL (13.0-17.5); Lymphocytes # (A) 2.1 k/uL (1.0-4.8); Lymphocytes % (A) 33 %; MCH 32.4 pg (25.0-35.0); MCHC 33.7 g/dL (31.0-37.0); MCV 96.1 fL (80.0-100.0); Mean Platelet Volume 6.8; Monocytes # (A) 0.5 k/uL (0-1.0); Monocytes % (A) 7 %; Neutrophils # (A) 3.3 k/uL (1.3-7.7); Neutrophils % (A) 52 %; Platelet Count 362 k/uL (150-450); RBC 4.12 m/uL (4.30-5.90); RDW 14.9 % (11.5-15.5); WBC 6.3 k/uL (3.8-10.6)
[2018-11-28 08:14] LABS: African American GFR (CKD) >90 (>60 ml/min/1.73 sqM); Anion Gap 13 mmol/L; Blood Urea Nitrogen 16 mg/dL (9-20); Calcium 9.6 mg/dL (8.4-10.2); Carbon Dioxide 27 mmol/L (22-30); Chloride 99 mmol/L (98-107); Glucose 131 mg/dL (74-99); Potassium 4.5 mmol/L (3.5-5.1); Sodium 139 mmol/L (137-145)
[2018-11-28] MEDS: busPIRone HCl 5 MG TAB PO SCH ×3 (08:19→23:03)
[2018-11-28] MEDS: DIVALPROEX 500 MG TABLET.DR PO SCH ×2 (08:19→17:15)
[2018-11-28] MEDS: PANTOPRAZOLE 40 MG TABLET PO SCH (08:19)
[2018-11-28] MEDS: GABAPENTIN 300 MG CAP PO SCH ×2 (08:19→23:00)
[2018-11-28] MEDS: MULTIVITAMINS, THERA 1 EACH TAB PO SCH (08:19)
[2018-11-28] MEDS: THIAMINE 100 MG TAB PO SCH (08:19)
[2018-11-28] MEDS: FUROSEMIDE 10 MG/ML 4 ML VIAL IV SCH ×2 (08:21→23:00)
[2018-11-28] MEDS: HEPARIN SODIUM,PORCINE 5,000 UNIT/ML 1 ML VIAL SQ SCH ×2 (08:21→23:01)
[2018-11-28] MEDS: NICOTINE 14MG/24HR PATCH TRANSDERM SCH (08:21)
[2018-11-28] MEDS: OLANZapine 5 MG TAB PO SCH (08:22)
--- NOTE | 2018-11-28 18:19 | PN ---
PROGRESS NOTE DATE OF SERVICE: 11/28/2018 This 43-year-old gentleman admitted with bilateral leg swelling is improving significantly. Patient still has some warmth. No chest pain. No palpitations. No fever. Cardiology has seen the patient today. Two-D echo was showing normal ejection fraction. The patient has history of stress-induced cardiomyopathy. No chest pain. No palpitations. No fever. EXAM: Alert and oriented times three. Pulse 118. Blood pressure 118/82, respirations 16, temperature 98 degrees, pulse ox 98% on room air. HEENT: Conjunctivae normal. NECK: No JVD. CARDIOVASCULAR: S1, S2 muffled. RESPIRATORY: Breath sounds diminished in the bases. No rhonchi. No crackles. ABDOMEN is soft. LEGS: Bilateral leg edema. CENTRAL NERVOUS SYSTEM: No focal deficits. LABORATORY DATA: WBC 6.3, hemoglobin 13.4. ASSESSMENT: 1. Acute bilateral leg cellulitis with swelling. 2. History of stress-induced cardiomyopathy. 3. Currently no evidence of active congestive heart failure. 4. History of cerebrovascular accident. 5. History of myocardial infarction. 6. History of hypertension. 7. History of hyperlipidemia. 8. History of bipolar, anxiety and depression. 9. History of nicotine dependence. 10.History of ETOH. 11.History of degenerative joint disease. 12.FULL CODE. RECOMMENDATIONS AND DISCUSSION: Recommend to continue current medications, management and symptomatic treatment. Continue with empiric diuretics and also continue with antibiotics. Closely monitor the fluid and electrolytes balance. Guarded prognosis. Further recommendations to follow. MMODL / IJN: [id number] /
[2018-11-28] MEDS: traZODone HCL 50 MG TAB PO SCH (22:57)
[2018-11-28] MEDS: LEVOFLOXACIN 500 MG TAB PO SCH (23:00)
[2018-11-29 08:12] LABS: Basophils # (A) 0.1 k/uL (0-0.2); Basophils % (A) 1 %; Eosinophils # (A) 0.2 k/uL (0-0.7); Eosinophils % (A) 4 %; HCT 41.1 % (39.0-53.0); HGB 13.5 gm/dL (13.0-17.5); Lymphocytes % (A) 34 %; MCH 31.2 pg (25.0-35.0); MCHC 32.8 g/dL (31.0-37.0); MCV 94.9 fL (80.0-100.0); Mean Platelet Volume 6.9; Monocytes # (A) 0.5 k/uL (0-1.0); Monocytes % (A) 9 %; Neutrophils # (A) 2.9 k/uL (1.3-7.7); Neutrophils % (A) 50 %; Platelet Count 349 k/uL (150-450); RBC 4.33 m/uL (4.30-5.90); RDW 14.8 % (11.5-15.5); WBC 5.8 k/uL (3.8-10.6)
[2018-11-29 08:23] LABS: African American GFR (CKD) >90 (>60 ml/min/1.73 sqM); Anion Gap 10 mmol/L; Blood Urea Nitrogen 20 mg/dL (9-20); Calcium 9.5 mg/dL (8.4-10.2); Carbon Dioxide 29 mmol/L (22-30); Chloride 98 mmol/L (98-107); Glucose 126 mg/dL (74-99); Sodium 137 mmol/L (137-145)
[2018-11-29] MEDS: GABAPENTIN 300 MG CAP PO SCH ×2 (09:42→22:29)
[2018-11-29] MEDS: busPIRone HCl 5 MG TAB PO SCH ×3 (09:42→22:29)
[2018-11-29] MEDS: NICOTINE 14MG/24HR PATCH TRANSDERM SCH (09:42)
[2018-11-29] MEDS: FUROSEMIDE 10 MG/ML 4 ML VIAL IV SCH ×2 (09:42→22:29)
[2018-11-29] MEDS: DIVALPROEX 500 MG TABLET.DR PO SCH ×2 (09:43→16:39)
[2018-11-29] MEDS: MULTIVITAMINS, THERA 1 EACH TAB PO SCH (09:45)
[2018-11-29] MEDS: OLANZapine 5 MG TAB PO SCH (09:45)
[2018-11-29] MEDS: THIAMINE 100 MG TAB PO SCH (09:45)
[2018-11-29] MEDS: HEPARIN SODIUM,PORCINE 5,000 UNIT/ML 1 ML VIAL SQ SCH ×2 (09:46→22:29)
[2018-11-29] MEDS: PANTOPRAZOLE 40 MG TABLET PO SCH (09:46)
--- NOTE | 2018-11-29 19:35 | PN ---
PROGRESS NOTE DATE OF SERVICE: 11/29/2018 This 43-year-old gentleman who was admitted with acute bilateral leg cellulitis and swelling is being closely monitored. No chest pain. No palpitations. No fever. The cultures are negative. EXAM: Alert and oriented x3. Pulse is 90, blood pressure 121/83, respirations 16, temperature 97.9, pulse ox 98% on room air HEENT: Conjunctivae normal. Oral mucosa moist. NECK: No jugular venous distention. No lymph node enlargement. CARDIOVASCULAR: S1, S2. RESPIRATORY: Diminished breath sounds at the bases. No rhonchi, no crackles. ABDOMEN: Soft, nontender. LEGS: Bilateral leg swelling and some erythema, improved. LABS: CBC, BMP normal. Glucose 126. ASSESSMENT: 1. Acute bilateral leg cellulitis with swelling, improving. 2. History of stress-induced cardiomyopathy previously. 3. Currently no evidence of congestive heart failure. 4. History of cerebrovascular accident. 5. History of myocardial infarction. 6. History of hypertension. 7. History of hyperlipidemia. 8. History of bipolar, anxiety, depression. 9. History of nicotine dependence. 10.History of EtOH. 11.History of degenerative joint disease. 12.Degenerative joint disease. 13.FULL CODE. RECOMMENDATIONS AND DISCUSSION: Recommend to continue current medications, continue to monitor, continue symptomatic treatment. Otherwise, at this time I recommend continue the antibiotics. Continue with diuretics. Guarded prognosis. Further recommendations to follow. MMODL / IJN: [id number] /
[2018-11-29] MEDS: LEVOFLOXACIN 500 MG TAB PO SCH (22:29)
[2018-11-29] MEDS: traZODone HCL 50 MG TAB PO SCH (22:30)
[2018-11-30 07:07] LABS: Basophils # (A) 0.1 k/uL (0-0.2); Basophils % (A) 1 %; Eosinophils # (A) 0.2 k/uL (0-0.7); Eosinophils % (A) 4 %; HCT 41.2 % (39.0-53.0); HGB 13.9 gm/dL (13.0-17.5); Lymphocytes # (A) 2.6 k/uL (1.0-4.8); Lymphocytes % (A) 40 %; MCH 31.6 pg (25.0-35.0); MCHC 33.7 g/dL (31.0-37.0); MCV 93.9 fL (80.0-100.0); Mean Platelet Volume 6.4; Monocytes # (A) 0.5 k/uL (0-1.0); Monocytes % (A) 8 %; Neutrophils # (A) 2.9 k/uL (1.3-7.7); Neutrophils % (A) 44 %; Platelet Count 349 k/uL (150-450); RBC 4.39 m/uL (4.30-5.90); RDW 13.5 % (11.5-15.5); WBC 6.5 k/uL (3.8-10.6)
[2018-11-30 07:28] LABS: African American GFR (CKD) >90 (>60 ml/min/1.73 sqM); Anion Gap 11 mmol/L; Blood Urea Nitrogen 19 mg/dL (9-20); Calcium 9.6 mg/dL (8.4-10.2); Carbon Dioxide 29 mmol/L (22-30); Chloride 99 mmol/L (98-107); Glucose 96 mg/dL (74-99); Potassium 4.1 mmol/L (3.5-5.1); Sodium 139 mmol/L (137-145)
[2018-11-30 08:07] VITALS: BP 124/78; PULSE 89; RESP 16; TEMP 98
[2018-11-30] MEDS: busPIRone HCl 5 MG TAB PO SCH (08:12)
[2018-11-30] MEDS: GABAPENTIN 300 MG CAP PO SCH (08:12)
[2018-11-30] MEDS: OLANZapine 5 MG TAB PO SCH (08:12)
[2018-11-30] MEDS: DIVALPROEX 500 MG TABLET.DR PO SCH (08:12)
[2018-11-30] MEDS: PANTOPRAZOLE 40 MG TABLET PO SCH (08:12)
[2018-11-30] MEDS: NICOTINE 14MG/24HR PATCH TRANSDERM SCH (08:12)
[2018-11-30] MEDS: HEPARIN SODIUM,PORCINE 5,000 UNIT/ML 1 ML VIAL SQ SCH (08:13)
[2018-11-30] MEDS: FUROSEMIDE 10 MG/ML 4 ML VIAL IV SCH (08:13)
[2018-11-30] MEDS: MULTIVITAMINS, THERA 1 EACH TAB PO SCH (08:13)
[2018-11-30] MEDS: THIAMINE 100 MG TAB PO SCH (08:13)
--- NOTE | 2018-11-30 21:55 | DS ---
DISCHARGE SUMMARY FINAL DIAGNOSES: 1. Acute bilateral leg cellulitis and swelling, improved. 2. History of stress-induced cardiomyopathy previously. 3. Currently no evidence of congestive heart failure on two-dimensional echocardiogram. 4. History of cerebrovascular accident. 5. History of myocardial infarction. 6. History of hypertension. 7. History of hyperlipidemia. 8. History of bipolar, anxiety, depression. 9. History of nicotine dependence. 10.History of ethanol. 11.History of degenerative joint disease. 12.FULL CODE. DISCHARGE DISPOSITION: The patient will be discharged in stable condition with guarded prognosis. Discharge cleared by multiple consultants. HISTORY OF PRESENT ILLNESS: This 43-year-old gentleman with a past medical history of multiple medical problems was admitted with acute bilateral leg cellulitis, treated with antibiotics and diuretics empirically. Patient improved significantly. Cardiology saw the patient. Two-D echo showed no acute abnormality at this time. Recommended outpatient followup. On exam, vitals are stable. CARDIOVASCULAR SYSTEM: S1, S2 muffled. ABDOMEN: Soft. NERVOUS SYSTEM: No focal deficit. The patient will be discharged to [facility] to continue rehab. The patient is medically cleared for rehab. DISCHARGE ADVICE AND MEDICATIONS: 1. Cardiac diet. 2. Follow up with primary physician in one week. 3. Risperidone 15 mg p.o. t.i.d. 4. Chlor-Trimeton 4 mg daily p.r.n. 5. Depakote 500 mg p.o. b.i.d. 6. Desyrel 50 to 150 mg at bedtime. 7. Gabapentin 600 mg p.o. b.i.d. 8. Motrin 600 mg q.6 p.r.n. 9. Multivitamins 1 p.o. daily. 10.Tylenol 650 q.4 p.r.n. 11.Vitamin B1 100 mg p.o. daily. 12.Zyprexa 5 mg p.o. daily. 13.Habitrol 14 daily. 14.K-Dur 10 mEq p.o. daily. 15.Lasix 20 mg p.o. daily for 2 weeks. 16.Levaquin 500 mg daily for 3 days. MMODL / IJN: [id number] /
== END 2018-11-30 15:42 | disposition other institution (70) ==
LOC: EC 11:37 → 4SSUR 15:47 → INTOOBSV 11-29 14:37 → OBSVTOIN 11-29 14:37 → UNDODISIN 11-30 15:42
PROVIDERS: ADMIT Internal Medicine; ATTEND Internal Medicine
DX: L03.115 Cellulitis of right lower limb (principal); L03.116 Cellulitis of left lower limb; I10 Essential (primary) hypertension; E78.5 Hyperlipidemia, unspecified; F10.10 Alcohol abuse, uncomplicated; F17.200 Nicotine dependence, unspecified, uncomplicated; M19.90 Unspecified osteoarthritis, unspecified site; F31.9 Bipolar disorder, unspecified; F41.9 Anxiety disorder, unspecified; Z79.899 Other long term (current) drug therapy; Z88.0 Allergy status to penicillin; Z88.6 Allergy status to analgesic agent; Z86.73 Personal history of transient ischemic attack (TIA), and cerebral infarction without residual deficits; Z91.5 Personal history of self-harm; Z86.79 Personal history of other diseases of the circulatory system; I25.2 Old myocardial infarction; Z82.5 Family history of asthma and other chronic lower respiratory diseases
CPT/HCPCS: 96376 ×4; 96366; 96367; 96372 ×5; 96375; 96365; 99285; 36415; 94640 ×2; 93005; 93306; 85379; 80164; 83880; 80053; 80048 ×4; 85652; 84443; 83735; 84484 ×2; 85025 ×5; 85610; 85730; 86140; 81003; 87040; 71046; 93970; 74177; G0378 ×6; S4990 ×4; J1644 ×5; J1940 ×4; J1956; Q9967